=== PATIENT | male | born 1960 | race Caucasian/White ===

== ENCOUNTER → 2021-01-25 | Outpatient (CLI) | payer OTHER ==
--- NOTE | 2021-01-25 18:02 | Diagnostic Imaging Report ---
EXAMINATION: Left elbow at 2:04 PM INDICATION: Elbow pain 3 views were obtained. There are no prior studies available for comparison. There is no fracture, dislocation or acute bony abnormality evident. There is a 2.9 x 12.2 mm well-circumscribed calcific density in the soft tissues adjacent to the medial epicondyle of the distal humerus. This may well represent an avulsion fracture and I suspect this injury is chronic in nature. Even so, the possibility of acute abnormality should still be considered. Clinical follow-up is recommended. 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 The posterior fat-pad is not elevated. The soft tissues are unremarkable. IMPRESSION: 1. The smooth calcific density in the soft tissues adjacent to the medial epicondyle of the distal humerus is more likely due to chronic avulsion fractures than to an acute injury. Even so, clinical follow-up is recommended. 2. There is no acute bony abnormality noted otherwise. Dictated by: Dictated on workstation # [id number]
== END ==
LOC: RAD FS 13:53
PROVIDERS: ATTEND Nurse Practitioner
DX: M25.522 Pain in left elbow (principal)
CPT/HCPCS: 73080